=== PATIENT | male | born 1960 | race Caucasian/White ===

== ENCOUNTER 2016-07-18 10:32 | Day surgery (SDC) | payer OTHER ==
[~2016-07-18] VITALS: Ht 185.4 cm; Wt 108.9 kg
--- NOTE | 2016-07-18 07:04 | PCM.HPANE ---
Patient Data Surgeon Admitting Provider: Attending Provider:Juan Carlos Kent MD Primary Care Physician:Jose Other Provider:Tom Keenan Anesthesia Reason for Visit GERD Ht/WT & BMI Body Mass Index Allergies Coded Allergies: No Known Allergies (Unverified , 07/14/16) Past Anesthesia History Anesthesia History: Denies:: Abnormal Airway, Anesthesia Reactions, Difficult Intubation, Fam Anesthesia Reaction, Fam Malignant Hypertherm, Malignant Hyperthermia Medications Reported Medications Omeprazole 20 Mg Capsule.dr20 Mg PO DAILY Ref 0 07/14/16 Multivitamin (Multi Vitamin Daily)1 Each Tablet1 Each PO DAILY 30 Days Ref 0 07/14/16 Ubidecarenone (Co Q-10)300 Mg [id number] Mg PO DAILY 07/14/16 History History of ENT Problems?: No HEENT History: Denies:: Abnormal Airway Cataracts Difficult Intubation Dysphagia Glaucoma Hearing Problem Sinus Problem TMJ Denture Type: None Teeth Condition: Within Normal Limits Hx of Heart Problems?: No Cardiovascular History: Denies:: AICD Abdominal Aortic Aneurism Atrial Fibrillation Cardiac Surgery Chest Pain Congestive Heart Failure Coronary Artery Disease Edema Heart Murmur Hypertension Irregular Heartbeat Pacemaker Peripheral Vascular Rheumatic Fever Thrombophlebitis Valvular Heart Disease Hx of Respiratory Problem?: No Respiratory History: Denies:: Asthma COPD Chest Surgery Cough Dyspnea Emphysema Hemoptysis Oxygen Administration Pneumonia Pulmonary Embolism Tuberculosis Use of C-PAP Machine Use of Inhalers / NEBS Hx Neurologic Problems?: No Neurological History: Denies:: Alzheimer's Disease CVA Dementia Dizziness Headaches Multiple Sclerosis Parkinson's Disease Peripheral Neuropathy Seizures TIA Hx of GI Problems?: Yes Gastrointestinal History: Denies:: Cirrhosis Diverticulitis Gall Bladder Disease Gastroesphageal Reflux Gastrointestinal Bleeding Heartburn Hepatitis Hiatal Hernia Liver Disease Rectal Bleeding Hx of Problems?: No Genitourinary History: Denies:: HX of Hemodialysis Kidney Stones Urinary Tract Infection HX of Peritoneal Dialysis: No Male Hx: Denies:: Prostate Problems Scrotal Mass Testicular Surgery Hx Musculoskeletal Problems?: No Musculoskeletal History: Denies:: Back Injury Degenerative Joint Fibromyalgia Joint Replacement Musculoskeletal Trauma Myasthenia Gravis Osteoarthritis Rheumatoid Arthritis Systemic Lupus Psycho Social History: Denies:: Anxiety Bipolar Disorder Hx Depression Suicide Attempt Hx Surgeries?: Yes Stop/Bang Risk Assessment Category Category 1A: Patient has history of documented sleep apnea, and HAS NOT received any narcotic, sedative or anesthesia administration during this stay. Category 1B: Patient has history of documented sleep apnea, and HAS received any narcotic , sedative or anesthesia administration during this stay Category 2: Patient has SUSPECTED Obstructive Sleep Apnea, and HAS received any narcotic , sedative or anesthesia administration during this stay. Category 3: Patient has SUSPECTED Obstructive Sleep Apnea and HAS NOT received narcotic, sedative or anesthesia administration during this stay. Category 4: Outpatient in Procedural Areas with known sleep apnea or who screen positive for High Risk via the STOP/BANG questionnaire. Exam Exam General Appearance: Alert, Oriented X3, Cooperative HEENT/AIRWAY: MP 2 Lungs: Normal Air Movement Heart: Regular Rate/Rhythm Plan Impression Patient chart reviewed, patient interviewed and anesthestic plan with risks, benefits, and alternatives discussed, and informed consent obtained. ASA Physical Status: ASA2 Mod Systemic Disease Anesthetic Plan: GA Bene/Risks/Altern/Consents: Yes HP Complete Prior to Induction: Yes Lucio Yuen MD July 18, 2016 07:04
[~2016-07-18 10:32] MED LIST: Lactated Ringer's 1,000 ML IV ONE; MULT-1018 PO; OMEP20CA11 PO; UBID300C PO
[2016-07-18] MEDS ORDERED: fentaNYL-PF 50 mCg/mL 2 mL Inj ONE (10:33)
[2016-07-18] MEDS ORDERED: Propofol 10,000 mCg/mL 20 mL Inj ONE (10:33)
[2016-07-18 11:37] VITALS: BP 110/69; PULSE 55; RESP 17; O2SAT 95
[2016-07-18] MEDS ORDERED: Lactated Ringer's 1,000 ML IV SCH (12:08)
[2016-07-18] MEDS ORDERED: Ondansetron 2 mg/mL 2 mL Inj IVPUSH PRN (12:10)
[2016-07-18] MEDS ORDERED: MetoCLOpramide 5 mg/mL 2 mL Inj IVPUSH PRN (12:10)
[2016-07-18 12:28] VITALS: BP 121/75; PULSE 69; RESP 16; O2SAT 95
[2016-07-18 12:38] VITALS: BP 104/70; PULSE 67; RESP 16; O2SAT 93
[2016-07-18 12:48] VITALS: BP 115/80; PULSE 79; RESP 16; O2SAT 95
--- NOTE | 2016-07-18 13:22 | PCM.ANEP1 ---
Post Anesthesia PACU Phase 1 Assessment Vital Signs Vital Signs Date Time Temp Pulse Resp B/P Pulse Ox O2 Delivery O2 Flow Rate FiO2 07/18/16 12:48 79 16 115/80 95 Room Air 07/18/16 12:38 67 16 104/70 93 Room Air 07/18/16 12:28 36.5 69 16 121/75 95 Room Air 07/18/16 11:37 36.7 55 17 110/69 95 Room Air Anesthetic Administered: GA Level of Alertness: Awake, talking MARRERO's with Equal Strength: Yes Pain: No Nausea or Vomiting: No CV Function & Hydration Stable: Yes Airway Device: Oxygen Delivery: Room Air Lungs: Normal Air Movement PACU Phase 2 Assessment Complications: No Follow up Care: No Patient Instructions Provided: N/A Lucio Yuen MD July 18, 2016 13:22
--- NOTE | 2016-07-18 13:37 | ENDO ---
[address] [address] ENDOSCOPY PROCEDURE PATIENT: RIGOBERTO SALAZAR : 1960 MR#: [id number] ADMIT: 07/18/2016 JOB ID: [id number] DATE: 07/18/2016 PRIMARY PROVIDER: Not listed. PROCEDURE: Esophagogastroduodenoscopy with biopsy. INDICATIONS: A 55-year-old male with a history of postprandial coughing, somewhat attenuated with the use of proton pump inhibitor. EQUIPMENT: GIF H 180 J. SEDATION: Monitored anesthesia as provided by Dr. Hector Yuen. COMPLICATIONS: None identified. PROCEDURAL INFORMATION: After the risks and benefits were explained, written and verbal informed consent was obtained. The patient was brought into the left lateral decubitus position. Sedation was achieved using the above stated medications with the addition of oxygen via nasal cannula. The scope was introduced into the mouth through the bite block, and advanced to the second portion of the duodenum. The scope was slowly withdrawn to carefully examine the mucosa for any defects or lesions. Retroflexed views were accomplished in the stomach. The stomach was decompressed. The scope removed from the patient who tolerated the procedure well. FINDINGS: 1. Duodenum: No significant pathology identified from the bulb through to the second portion. 2. Stomach: There was a small nodule in the antrum which was biopsied with cold forceps for histopathology and exclusion of H. pylori. Otherwise, no significant gastric pathology identified including retroflexed views of the LES. 3. Esophagus: The squamocolumnar junction correlated with the top of the gastric folds. The GEJ was at 44 cm from the incisors. No acute erosive changes. No strictures. No mass lesions. There was a benign appearing small inlet patch just below the upper esophageal sphincter. No other pathology identified throughout. ENDOSCOPIC DIAGNOSIS: 1. Small antral nodule. 2. Otherwise visually unremarkable esophagogastroduodenoscopy. RECOMMENDATIONS: 1. Await histopathology. 2. Continue Prilosec once daily for now, and proceed with 24 hour pH on meds. 3. Followup in clinic about one week post pH study.
--- NOTE | 2016-07-24 14:33 | PATH ---
SURGICAL PATHOLOGY Attending Physician:Thi Barry CASE STATUS: Signed Out PATIENT NAME: RIGOBERTO SALAZAR PID: [id number] : 1960 DATE COLLECTED:07/18/2016 22:38 SPECIMEN: Stomach, Antrum, Biopsy CLINICAL HISTORY: 1). ANTRAL NODULE BIOPSY FINAL DIAGNOSIS: 1.GASTRIC ANTRAL NODULE BIOPSY: HYPERPLASTIC NODULE WITH EROSION AND REACTIVE REGENERATIVE CHANGES. Negative for Helicobacter organisms by immunohistochemical stains. Negative for intestinal metaplasia. Negative for dysplasia and malignancy. [id number] NOTE: D. As part of a routine director of quality control, Dr. Helio Navarro has also reviewed this case and agrees with the diagnosis GROSS DESCRIPTION: The specimen is received in one formalin filled container labeled with the patient's name, sublabeled "antral nodule" and consists of a 0.4 x 0.4 x 0.3 CM portion of tissue which is entirely submitted in one cassette. 07/18/2016 DAC MICRO DESCRIPTION: Sections are of gastric antral mucosa with hyperplastic glandular changes, erosion, and reactive regenerative changes. No intestinal metaplasia is identified. No Helicobacter organisms are identified on H&E stains. Immunohistochemical stains are performed to further evaluate for the presence of Helicobacter organisms. The patient tissue is stained with monoclonal antibody to Helicobacter pylori (SP48). Positive and negative controls stain appropriately. Result: The patient tissue shows no Helicobacter staining. Interpretation: The gastric mucosa is negative for Helicobacter pylori organisms by immunohistochemical stains. This test was developed and its performance characteristics determined by [facility]. It has not been cleared or approved by the [place]. Food and Drug Administration. The FDA has determined that such clearance or approval is not necessary. This test is used for clinical purposes. It should not be regarded as investigational or for research. ICD-9 CODES: CPT CODES: 1: 91451, 51016 Electronically Signed Out Wilma Briones MD [facility] Pathology [facility] [address], [place] [address] Technical component performed at [facility], [address], [place], [address]
== END 2016-07-18 23:59 | disposition home or self-care (01) ==
LOC: END 10:32
PROVIDERS: ATTEND Internal Medicine Gastroenterology
DX: K29.70 Gastritis, unspecified, without bleeding (principal); K21.9 Gastro-esophageal reflux disease without esophagitis; R05 Cough; G47.33 Obstructive sleep apnea (adult) (pediatric)
CPT/HCPCS: 43239; 88305; 88342; J2250; J3010; J7120

== ENCOUNTER → 2016-09-12 | Day surgery (SDC) | payer OTHER ==
[~2016-09-12] MED LIST changes: -Lactated Ringer's 1,000 ML IV ONE; +Lidocaine Topical 2% 30 mL Jelly ONE
== END | disposition home or self-care (01) ==
LOC: END 00:32
PROVIDERS: ATTEND Internal Medicine Gastroenterology
DX: K21.9 Gastro-esophageal reflux disease without esophagitis (principal)